=== PATIENT | female | born 2000 | race African-American/Black ===

== ENCOUNTER 2023-07-11 01:32 | Emergency (ER) | payer OTHER ==
[2023-07-11] MEDS ORDERED: Dexamethasone 10 MG/ML VIAL ONE (02:07)
== END 2023-07-11 02:40 | disposition home or self-care (01) ==
LOC: CSHERS 01:32
DX: T78.40XA Allergy, unspecified, initial encounter (principal); R21 Rash and other nonspecific skin eruption; Z55.6 Problems related to health literacy
CPT/HCPCS: 99283; J1100

== ENCOUNTER 2023-07-31 14:27 | Emergency (ER) | payer OTHER ==
[2023-07-31] MEDS ORDERED: Ketorolac Tromethamine 30 MG (1 mL) VIAL ONE (15:04)
== END 2023-07-31 15:20 | disposition home or self-care (01) ==
LOC: CSHERS 14:27
DX: S97.82XA Crushing injury of left foot, initial encounter (principal); V03.90XA Pedestrian on foot injured in collision with car, pick-up truck or van, unspecified whether traffic or nontraffic accident, initial encounter
CPT/HCPCS: 96372; J1885

== ENCOUNTER 2023-10-21 11:42 | Emergency (ER) | payer OTHER ==
[2023-10-21] MEDS ORDERED: Ondansetron ODT 4 MG TAB ONE (12:52)
[2023-10-21 12:59] LABS: #Basophils 0.02 10x3/uL (0.0-0.2); #Eosinphils 0.05 10x3/uL (0.0-0.5); #Monocytes 0.16 10x3/uL (0.0-1.1); %Basophils 0.8 % (0.0-2.0); %Eosinophils 1.9 % (0.0-6.0); %Lymphocytes 40.9 % (18.0-47.0); %Monocytes 6.2 % (0.0-10.0); %Neutrophils 50.2 % (40.0-75.0); Anion Gap 15 mmol/L (10-20); BUN (Urea Nitrogen) 10 mg/dL (7.0-18.7); Calc. Creatinine Clearance 0 mL/min (70-130); Calcium 9.6 mg/dL (7.8-10.44); Carbon Dioxide 18 mmol/L (22-29); Chloride 111 mmol/L (98-107); Estimated GFR 101; Glucose 87 mg/dL (70-105); Hematocrit 36.7 % (34.9-44.5); Hemoglobin 11.5 g/dL (12.0-15.5); Mean Corpuscular HGB CONC 31.3 g/dL (32.0-36.0); Mean Corpuscular Hemoglobin 24.5 pg (27.0-33.0); Mean Corpuscular Volume 78.1 fL (81.6-98.3); Mean Platelet Volume 9.5 fL (7.4-10.4); Platelet Count 316 10x3/uL (150-450); Potassium 3.8 mmol/L (3.5-5.1); RBC Distribution Width 22.5 % (11.5-14.5); Sodium 140 mmol/L (136-145); White Blood Cell (WBC) Count 2.6 10x3/uL (3.5-10.5)
[2023-10-21] MEDS ORDERED: Ketorolac Tromethamine 30 MG (1 mL) VIAL ONE (13:24)
[2023-10-21 13:28] LABS: Bilirubin Neg (Negative); Blood, Urine Negative (Negative); Glucose, Urine (Dipstick) Normal (Negative); Ketone, Urine Negative (Negative); Leukocyte 500 (Negative); Nitrite Negative (Negative); Protein, Urine (Dipstick) 15 mg/dl (Neg-Trace); Specific Gravity, Urine 1.015 (1.005-1.030); Urobilinogen Normal mg/dL (Less than 2)
[2023-10-21 13:29] LABS: Clarity Hazy (Clear); Pregnancy Test - Urine (BHCG) Negative (Negative); Pregu Control Background? CLEAR/WHITE (CLR/WHITE); Pregu Control Bar Appear? YES (CONTROL BAR); Specific Gravity 1.015 (1.002-1.036)
[2023-10-21 13:35] LABS: Bacteria/HPF 1+ HPF (None Seen); CAUTI Indications for Culture Alt mental st,lethar; RBC/HPF 0-3 HPF (0-3); Yeast-Budding 1+ HPF (None Seen)
[2023-10-21 13:36] LABS: Urine Culture Reflex Yes Yes
== END 2023-10-21 13:40 | disposition home or self-care (01) ==
LOC: CSHERS 11:42
DX: S06.0X0A Concussion without loss of consciousness, initial encounter (principal); F32.A Depression, unspecified; G43.909 Migraine, unspecified, not intractable, without status migrainosus; Z86.2 Personal history of diseases of the blood and blood-forming organs and certain disorders involving the immune mechanism; W10.9XXA Fall (on) (from) unspecified stairs and steps, initial encounter
CPT/HCPCS: 36415; 70450; 80048; 81001; 81025; 85025; 87086; 96372; J1885; Q0162

== ENCOUNTER 2023-11-02 01:17 | Emergency (ER) | payer OTHER, SELFPAY ==
[2023-11-02] MEDS ORDERED: Ketorolac Tromethamine 30 MG (1 mL) VIAL ONE (02:28)
== END 2023-11-02 02:35 | disposition home or self-care (01) ==
LOC: CSHERS 01:17
DX: K02.9 Dental caries, unspecified (principal); R51.9 Headache, unspecified; K08.89 Other specified disorders of teeth and supporting structures; J45.909 Unspecified asthma, uncomplicated; Z79.899 Other long term (current) drug therapy
CPT/HCPCS: 96372; 99283; J1885

== ENCOUNTER 2023-11-16 05:22 | Emergency (ER) | payer OTHER, SELFPAY ==
[2023-11-16 06:30] LABS: #Basophils 0.02 10x3/uL (0.0-0.2); #Eosinphils 0.05 10x3/uL (0.0-0.5); #Monocytes 0.31 10x3/uL (0.0-1.1); #Neutrophils 1.62 10x3/uL (1.5-8.4); %Basophils 0.6 % (0.0-2.0); %Eosinophils 1.5 % (0.0-6.0); %Lymphocytes 39.8 % (18.0-47.0); %Monocytes 9.3 % (0.0-10.0); %Neutrophils 48.8 % (40.0-75.0); Hematocrit 32.6 % (34.9-44.5); Hemoglobin 10.2 g/dL (12.0-15.5); Mean Corpuscular HGB CONC 31.3 g/dL (32.0-36.0); Mean Corpuscular Hemoglobin 24.6 pg (27.0-33.0); Mean Corpuscular Volume 78.7 fL (81.6-98.3); Mean Platelet Volume 9.7 fL (7.4-10.4); Platelet Count 283 10x3/uL (150-450); RBC Distribution Width 17.9 % (11.5-14.5); Red Blood Cell (RBC) Count 4.14 10x6/uL (3.90-5.03); White Blood Cell (WBC) Count 3.3 10x3/uL (3.5-10.5)
[2023-11-16 07:07] LABS: Anion Gap 15 mmol/L (10-20); BUN (Urea Nitrogen) 11 mg/dL (7.0-18.7); Calc. Creatinine Clearance 0 mL/min (70-130); Calcium 9.3 mg/dL (7.8-10.44); Carbon Dioxide 20 mmol/L (22-29); Chloride 107 mmol/L (98-107); Estimated GFR 118; Glucose 95 mg/dL (70-105); Potassium 3.8 mmol/L (3.5-5.1); Sodium 138 mmol/L (136-145)
== END 2023-11-16 07:12 | disposition home or self-care (01) ==
LOC: CSHERS 05:22
DX: J45.909 Unspecified asthma, uncomplicated (principal); F17.210 Nicotine dependence, cigarettes, uncomplicated; Z79.899 Other long term (current) drug therapy
CPT/HCPCS: 80048; 85025; 99283

== ENCOUNTER 2023-11-23 21:02 | Emergency (ER) | payer MEDICAID, SELFPAY ==
[2023-11-23] MEDS ORDERED: Ibuprofen 200 MG TAB ONE (21:41)
[2023-11-23 21:59] LABS: Influenza A by NAA Not Detected (NotDetected); Influenza B by NAA Not Detected (NotDetected); SARS-CoV-2 NAA Rapid Test DETECTED (NotDetected)
== END 2023-11-23 22:14 | disposition home or self-care (01) ==
LOC: CSHERS 21:02
DX: U07.1 COVID-19 (principal); F17.210 Nicotine dependence, cigarettes, uncomplicated
CPT/HCPCS: 93005

== ENCOUNTER 2024-03-16 21:29 | Emergency (ER) | payer SELFPAY ==
[2024-03-16] MEDS ORDERED: Ketorolac Tromethamine 30 MG (1 mL) VIAL ONE (22:38)
[2024-03-16] MEDS ORDERED: Ondansetron PF 4 MG/2 ML Vial ONE (22:38)
[2024-03-16 23:12] LABS: #Basophils 0.02 10x3/uL (0.0-0.2); #Eosinophils 0.07 10x3/uL (0.0-0.5); #Neutrophils 1.18 10x3/uL (1.5-8.4); %Basophils 0.6 % (0.0-2.0); %Eosinophils 2.1 % (0.0-6.0); %Neutrophils 35.3 % (40.0-75.0); BHCG - Serum Negative (NEGATIVE); Hematocrit 31.9 % (34.9-44.5); Hemoglobin 9.4 g/dL (12.0-15.5); Mean Corpuscular HGB CONC 29.5 g/dL (32.0-36.0); Mean Corpuscular Hemoglobin 22.2 pg (27.0-33.0); Mean Corpuscular Volume 75.4 fL (81.6-98.3); Mean Platelet Volume 9.9 fL (7.4-10.4); Platelet Count 233 10x3/uL (150-450); Pregs Control Background? CLEAR/WHITE (CLR/WHITE); Pregs Control Bar Appear? YES (CONTROL BAR); RBC Distribution Width 20.1 % (11.5-14.5); Red Blood Cell (RBC) Count 4.23 10x6/uL (3.90-5.03); White Blood Cell (WBC) Count 3.3 10x3/uL (3.5-10.5)
[2024-03-16 23:18] LABS: ALT (SGPT) 13 U/L (8-55); AST (SGOT) 19 U/L (5-34); Albumin 3.8 g/dL (3.5-5.0); Alkaline Phosphatase 53 U/L (40-110); Anion Gap 13 mmol/L (10-20); BUN (Urea Nitrogen) 6 mg/dL (7.0-18.7); Bilirubin, Total 0.2 mg/dL (0.2-1.2); Calc. Creatinine Clearance 0 mL/min (70-130); Calcium 9.4 mg/dL (7.8-10.44); Carbon Dioxide 22 mmol/L (22-29); Chloride 107 mmol/L (98-107); Estimated GFR 118; Globulin 3.3 g/dL (2.4-3.5); Glucose 84 mg/dL (70-105); Lipase 36 U/L (8-78); Potassium 3.9 mmol/L (3.5-5.1); Protein, Total 7.1 g/dL (6.0-8.3); Sodium 138 mmol/L (136-145)
[2024-03-16 23:19] LABS: Bilirubin Neg (Negative); Blood, Urine Negative (Negative); Glucose, Urine (Dipstick) Normal (Negative); Ketone, Urine Negative (Negative); Leukocyte Negative (Negative); Nitrite Negative (Negative); Protein, Urine (Dipstick) Negative (Neg-Trace); Urobilinogen Normal mg/dL (Less than 2)
[2024-03-16 23:24] LABS: Clarity Clear (Clear)
[2024-03-16 23:28] LABS: Bacteria/HPF 1+ HPF (None Seen); CAUTI Indications for Culture Pelvic or flank pain; RBC/HPF 0-3 HPF (0-3); WBC/HPF 0-3 HPF (0-3); Yeast-Budding 1+ HPF (None Seen)
[2024-03-16 23:29] LABS: Urine Culture Reflex No No
== END 2024-03-16 23:52 | disposition home or self-care (01) ==
LOC: CSHERS 21:29
DX: N39.0 Urinary tract infection, site not specified (principal); B37.9 Candidiasis, unspecified; F17.210 Nicotine dependence, cigarettes, uncomplicated
CPT/HCPCS: 80053; 81001; 83690; 84703; 85025; 96374; 96375; J1885; J2405

== ENCOUNTER 2024-06-06 17:57 | Emergency (ER) | payer SELFPAY ==
[2024-06-06] MEDS ORDERED: Ondansetron ODT 4 MG TAB ONE (18:37)
== END 2024-06-06 19:35 | disposition home or self-care (01) ==
LOC: CSHERS 17:57
DX: J06.9 Acute upper respiratory infection, unspecified (principal); B97.89 Other viral agents as the cause of diseases classified elsewhere; F17.210 Nicotine dependence, cigarettes, uncomplicated
CPT/HCPCS: 71046; 87428; 93005; Q0162